=== PATIENT | female | born 1945 | race Caucasian/White ===

== ENCOUNTER 2018-01-27 18:47 | Emergency (ER) | payer MEDICARE, BC ==
[~2018-01-27] VITALS: Ht 170.8 cm; Wt 72.7 kg
[2018-01-27] MEDS ORDERED: HYDROcodone/acetaminophen 10/325mg tab PO ONE (23:25)
[2018-01-27] MEDS ORDERED: HYDR-565 PO (23:30)
[2018-01-27] MEDS ORDERED: naproxen 500mg tablet PO ONE (23:35)
[2018-01-28 00:20] VITALS: BP 129/79
== END 2018-01-28 00:09 | disposition home or self-care (01) ==
LOC: ER 18:48
DX: S52.502A Unspecified fracture of the lower end of left radius, initial encounter for closed fracture (principal); Z88.8 Allergy status to other drugs, medicaments and biological substances; Z79.899 Other long term (current) drug therapy; W01.0XXA Fall on same level from slipping, tripping and stumbling without subsequent striking against object, initial encounter; Y93.89 Activity, other specified; Y92.89 Other specified places as the place of occurrence of the external cause; Y99.8 Other external cause status
CPT/HCPCS: 29125; 73090; 73110; 99284; A4565; A6449